=== PATIENT | male | born 2000 | race Caucasian/White ===

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

== ENCOUNTER 2019-11-02 22:45 | Emergency (ER) | payer OTHER ==
[~2019-11-02] VITALS: Ht 172.7 cm; Wt 61.2 kg
[~2019-11-02 22:45] MED LIST changes: +ALBU90OI INH; +AZIT250 PO; +CEFP200 PO; +Zithromax250 MG PO
== END 2019-11-02 23:34 | disposition home or self-care (01) ==
LOC: ER 22:45
DX: Z00.00 Encounter for general adult medical examination without abnormal findings (principal); Z87.891 Personal history of nicotine dependence
CPT/HCPCS: 99282